=== PATIENT | male | born 1960 ===

== ENCOUNTER 2017-02-11 15:43 | Emergency (ER) | payer OTHER, MEDICARE ==
[2017-02-11 15:43] VITALS: BMI 27.3
[2017-02-11 15:55] VITALS: BP 154/90; PULSE 86; RESP 18; TEMP 98.6; O2SAT 99
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
== END 2017-02-11 17:12 | disposition home or self-care (01) ==
LOC: C.ER 15:43
DX: S16.1XXA Strain of muscle, fascia and tendon at neck level, initial encounter (principal); V43.52XA Car driver injured in collision with other type car in traffic accident, initial encounter
CPT/HCPCS: 96372; 99283; J1885